=== PATIENT | male | born 1970 | race Caucasian/White ===

== ENCOUNTER 2017-08-23 07:11 | Day surgery (SDC) | payer MEDICAID, OTHER ==
[~2017-08-23] VITALS: Ht 175.3 cm; Wt 94.7 kg
[~2017-08-23 07:11] MED LIST: ATROPINE 1 MG/10 ML SYRINGE IV PRN; CEFAZOLIN 1 GM INJ ONE; DIPHENHYDRAMINE 50 MG INJ IV PRN; EPHEDrine SULFATE 50 MG/5 ML SYG IV PRN; FENTAnyl 50 MCG/ML VIAL IV PRN; HYDROmorphONE (0.2 MG/ML) 10ML SYG IV PRN; LABETALOL HCL 20MG INJ IV PRN; LASS PO; MEPERIDINE 25 MG INJ IV PRN; MIDAZOLAM 1 MG/ML 2 ML INJ IV PRN; ONDANSETRON 4 MG INJ IV PRN; OXYCODONE/ACETAMINOPHEN (5/325) TAB PO PRN; SEVE800T10 PO; cholesterol meds; htn meds; hydrALAzine 20 MG INJ IV PRN; morphine (1 MG/ML) 10ML SYRINGE IV PRN
[2017-08-23] MEDS ORDERED: PANT40TA3 PO (07:44)
[2017-08-23] MEDS ORDERED: SIMV20TA PO (07:45)
[2017-08-23] MEDS ORDERED: BENA40TA41 PO (07:45)
[2017-08-23] MEDS ORDERED: AMLO5TAB4 PO (07:46)
[2017-08-23] MEDS ORDERED: GLIP5TAB13 PO (07:46)
[2017-08-23] MEDS ORDERED: CLON0.2T5 PO (07:47)
[2017-08-23] MEDS ORDERED: CEFAZOLIN 2 GM/50 ML (PMX) 50 ML IVPB SCH (08:00)
[2017-08-23 08:13] VITALS: Ht 175.3 cm; Wt 94.7 kg
[2017-08-23 08:15] VITALS: BP 159/92; PULSE 78; RESP 16
[2017-08-23] MEDS ORDERED: FENTAnyl 50 MCG/ML VIAL ONE (09:38)
[2017-08-23] MEDS ORDERED: LIDOCAINE 2% (SDV) 5 ML INJ ONE (09:38)
[2017-08-23] MEDS ORDERED: ROPIVACAINE 0.5 % 30 ML VIAL ONE (09:38)
[2017-08-23] MEDS ORDERED: NEOSTIGMINE 3 MG/3 ML SYRINGE ONE (09:38)
[2017-08-23] MEDS ORDERED: ROCURONIUM 50 MG INJ ONE (09:38)
[2017-08-23] MEDS ORDERED: PROPOFOL 20 ML ONE (09:38)
[2017-08-23] MEDS ORDERED: MIDAZOLAM 1 MG/ML 2 ML INJ ONE (09:38)
[2017-08-23] MEDS ORDERED: GLYCOPYRROLATE 1 MG INJ ONE (09:38)
[2017-08-23] MEDS ORDERED: LIDOCAINE 1% (MDV) 20 ML INJ ONE (09:39)
[2017-08-23] MEDS ORDERED: GELATIN SIZE 100 SPONGE ONE (10:35)
[2017-08-23] MEDS ORDERED: HEPARIN 1000 UNITS/ML 10 ML INJ ONE (10:35)
[2017-08-23] MEDS ORDERED: THROMBIN 5000 UNIT VIAL ONE (10:35)
[2017-08-23] MEDS ORDERED: LIDOCAINE 1% (MPF) 30 ML INJ ONE (10:35)
--- NOTE | 2017-08-23 10:43 | HPN ---
Date/Time of Note Date/Time of Note DATE: 08/23/17 TIME: 10:42 Interval H&P Admission Note Pt. seen H&P reviewed: No system changes SCOOTER SIDDIQUI MD Aug 23, 2017 10:43
[2017-08-23] MEDS ORDERED: hydrALAzine 20 MG INJ ONE (11:31)
[2017-08-23] MEDS ORDERED: LABETALOL HCL 20MG INJ ONE (11:39)
[2017-08-23 13:06] VITALS: BP 156/82; RESP 14
[2017-08-23 13:11] VITALS: BP 144/74; PULSE 86; RESP 16
[2017-08-23 13:16] VITALS: BP 148/75; PULSE 86; RESP 14
[2017-08-23 13:21] VITALS: BP 141/76; PULSE 87; RESP 14
--- NOTE | 2017-08-23 13:29 | SIPON ---
Date/Time of Note Date/Time of Note DATE: 08/23/17 TIME: 13:29 Operative Report Preoperative Diagnosis ESRD Postoperative Diagnosis ESRD Operation/Procedure Performed LEFT ARM BRACHIOCEPHALIC FISTULA CREATION Surgeon see signature line clothing sales assistant NONE Anesthesia: moderate sedation, other (BLOCK) Estimated blood loss: 0 - 10 ml's Transfusion Required none Specimen NONE Grafts/Implants none Complications none SCOOTER SIDDIQUI MD Aug 23, 2017 13:29
--- NOTE | 2017-08-23 13:31 | PDOCDIS ---
Discharge Instructions DIAGNOSIS Discharge Diagnosis ESRD CONDITION Patient Condition: Good HOME CARE INSTRUCTIONS: Special Diet: RENAL DIET ACTIVITY: Activity Restrictions: Slowly Increase Activity Do not Drive Do not operate Machinery Do not operate Power Tool Avoid Heavy Housework Bathing Restrictions: Sponge Bath FOLLOW UP/APPOINTMENTS Follow-up Plan MAY SHOWER IN TWO DAYS, NO BATHING OR SWIMMING MAY REMOVE DRESSING IN TWO DAYS KEEP ARM SLING ATTACHED UNTIL MOTOR/SENSORY OF THE FINGERTIPS HAVE RETURNED EXTRA STRENGTH TYLENOL OVER THE COUNTER RECOMMENDED FOR PAIN CONTROL SCOOTER SIDDIQUI MD Aug 23, 2017 13:31
--- NOTE | 2017-08-23 13:37 | OPR ---
Date/Time of Note Date/Time of Note DATE: 08/23/17 TIME: 13:33 Operative Report Procedure Date: Aug 23, 2017 Preoperative Diagnosis ESRD Postoperative Diagnosis ESRD Operation/Procedure Performed LEFT BRACHIOCEPHALIC FISTULA CREATION Surgeon see signature line Loan Representative NONE Anesthesia Type: moderate sedation, other (BLOCK) Estimated Blood Loss: 0 - 10 ml's Transfusion none Specimen NONE Grafts/Implants none Complications none Pt Condition Post Procedure: stable Disposition: PACU Procedure Description DATE OF OPERATION: 08/23/2017 SURGEON: Phuc Siddiqui MD PREOPERATIVE DIAGNOSIS: ESRD POSTOPERATIVE DIAGNOSIS: SAME PROCEDURE: Creation of a left arm brachiocephalic arteriovenous fistula. ANESTHESIA: Regional Block and Local COMPLICATIONS: None. ESTIMATED BLOOD LOSS: Minimal. TRANSFUSIONS: None SPECIMEN: None. INDICATIONS: This is a 46-year-old male with a history of end-stage renal artery disease and current right groin permanent catheter. The risks and benefits of the procedure were discussed with the patient and not limited to , NH, pneumonia, stroke, infection, thrombosis of graft and arteriovenous fistula, nerve injury, limb loss, revisions of AVF, steal and she elected to undergo surgical intervention. DESCRIPTION: The patient was placed in supine position on the operating room table. The arms were placed at 80 degrees. The normal bony prominences were padded. The anesthesia team had placed the appropriate lines and anesthesia was induced. Time out performed and the appropriate site was marked and confirmed. The patient's upper extremity prepped and draped in the usual standard sterile fashion. Preoperative antibiotics were administered prior to the skin incision since the patient already had been on antibiotics. A 6 cm transverse skin incision was then performed below the antecubital fossa. The cephalic vein was identified and dissected for a segment of nearly 5 cm. Dissection was then carried as distally as possible through that incision. Attention was then directed to the brachial artery. The tendinous aponeurosis of the biceps muscle was then incised. Location of the brachial artery was then identified by palpation. The soft tissue over the brachial artery was then incised, and the brachial artery was then confirmed. The patient was given 3000 units of heparin intravenously. The cephalic vein was then ligated at its most distal end. Yasargil clamps were then applied on the brachial artery, and a 6 mm incision in the anterior wall of the brachial artery was then performed. The cephalic vein was then gently curved and allowed to lay over the arteriotomy. The end of the vein was spatulated to match the side of the arteriotomy. The anastomosis was then performed using a running 6-0 Prolene suture. At the completion of the suture line the brachial artery was forward-flushed and then allowed to backbleed. The cephalic vein was also allowed to backbleed. The anastomosis was irrigated with heparinized saline solution. The suture was then tied and the suture line evaluated for hemostasis, which was adequate. There was evidence of excellent thrill in the cephalic vein. There was a strong pulse palpable in the brachial, radial, and ulnar arteries at the wrist. There was no evidence of any kinks. The subcutaneous tissue was then closed with a 3-0 Vicryl running suture and the skin closed with romulo. There was evidence of excellent thrill in the cephalic vein after the wound closure. The patient tolerated the procedure well and was taken to the postanesthesia care unit in stable condition. Initial count of needles was off by one needle, therefore an xray was performed to identify a 6-0 Prolene suture. It was then identified on the back table and on recount all instruments, catheters, sponge, and needles were corrected x2. PHUC SIDDIQUI MD Aug 23, 2017 13:37
[2017-08-23 14:07] VITALS: BP 154/76; PULSE 88; RESP 20
--- NOTE | 2017-08-24 08:31 | RADRPT ---
PROCEDURE: Limited left humerus CLINICAL INDICATION: Pain, injury, missing needle TECHNIQUE: A single spot films taken from the C-arm is submitted for review. COMPARISON: None FINDINGS: A single spot film of the left elbow was obtained from the C-arm and submitted for review. Image dem onstrates surgical skin clips overlie the radial head and neck. Fine detail is limited on the spot f ilms. Fluoroscopy time: 3.1 second stent the Number of images/sequences: 1.0 IMPRESSION: Limited spot films as above. Michael Wallace Physician Date Time Electronically viewed and signed by Michael Wallace Physician on 08/24/2017 08:31 MARY/
== END 2017-08-23 14:55 | disposition home or self-care (01) ==
LOC: SDS 07:11
PROVIDERS: ATTEND Student in an Organized Health Care Education/Training Program
DX: Z45.2 Encounter for adjustment and management of vascular access device (principal); N18.6 End stage renal disease; E11.9 Type 2 diabetes mellitus without complications; I12.0 Hypertensive chronic kidney disease with stage 5 chronic kidney disease or end stage renal disease
CPT/HCPCS: 36821; 73060; 82962; 84132; J0360; J0690; J1644; J2250; J2795; J3010; Z7512; Z7610; J2710

== ENCOUNTER 2017-12-13 06:05 | Day surgery (SDC) | END 2017-12-13 10:46 | disposition home or self-care (01) ==

== ENCOUNTER 2018-02-14 10:45 | Day surgery (SDC) | END 2018-02-14 18:26 | disposition home or self-care (01) ==